=== PATIENT | female | born 1985 | race Caucasian/White ===

== ENCOUNTER 2018-05-25 05:30 | Emergency (ER) | payer OTHER ==
[2018-05-25 05:45] VITALS: TEMP 97.7; O2SAT 100
[2018-05-25 06:05] VITALS: RESP 20
[2018-05-25] MEDS ORDERED: Dexamethasone 4 mg/1 ml IM STA (06:14)
[2018-05-25] MEDS: Albuterol-Ipratrop 3 mg / 0.5 (3 ml) UD IH SCH ×2 (06:20→06:21)
--- NOTE | 2018-05-25 06:25 | C.PDOC ---
History Of Present Illness 33 year old female with PMhx of asthma presents to the ED c/o chest tightness and SOB. Patient reports she went to see her PMD on Sunday and was placed on prednisone and nebulizer treatment. However patient states she still feel SOB, and its recurrent when she goes outside. Patient denies fever, chills, dizziness , nausea, vomit, headache, recent travel, sick contacts. Time Seen by Provider: 05/25/18 06:01 Chief Complaint (Nursing): Shortness Of Breath History Per: Patient History/Exam Limitations: no limitations Onset/Duration Of Symptoms: Days Current Symptoms Are (Timing): Still Present Initiating Event: Upper Respiratory Illness Quality: Tightness Current Respiratory Medications: See Home Med List Recent travel outside of the [place]: No Additional History Per: Patient Past Medical History Reviewed: Historical Data, Nursing Documentation, Vital Signs Vital Signs: Last Vital Signs Temp 97.7 F 05/25/18 05:43 Pulse 99 H 05/25/18 05:43 Resp 20 05/25/18 05:56 BP 159/89 H 05/25/18 05:43 Pulse Ox 100 05/25/18 06:32 - Medical History PMH: Asthma Surgical History: No Surg Hx Family History: States: Unknown Family Hx - Social History Hx Alcohol Use: Yes Hx Substance Use: No Review Of Systems Constitutional: Negative for: Fever, Chills ENT: Negative for: Nose Congestion Cardiovascular: Positive for: Other (chest tightness) Respiratory: Positive for: Shortness of Breath. Negative for: Cough Neurological: Negative for: Weakness, Numbness Physical Exam - Physical Exam Appears: Non-toxic, No Acute Distress Skin: Normal Color, Warm, Dry Head: Atraumatic, Normacephalic Eye(s): bilateral: Normal Inspection, PERRL Throat: Normal, No Erythema, No Exudate Neck: Normal ROM, Supple Chest: Symmetrical Cardiovascular: Rhythm Regular Respiratory: Decreased Breath Sounds (minimally ), No Rales, No Rhonchi, No Wheezing Gastrointestinal/Abdominal: Soft, No Tenderness Extremity: Normal ROM Neurological/Psych: Oriented x3, Normal Speech Gait: Steady ED Course And Treatment O2 Sat by Pulse Oximetry: 100 (ON RA) Pulse Ox Interpretation: Normal Progress Note: Plan: - Decadron 10 mg IM. - Nebulizer treatment X 2. On reassessment, patient is resting comfortably with no wheezing, chest pain, or retractions. Oxygen saturation and breath sounds have improved. Patient is alert and oriented x 3. Patient was advised to follow up with physician/clinic in 1-2 days and return to ED if symptoms worsen or persist. Reevaluation Time: 06:44 Reassessment Condition: Improved Disposition Counseled Patient/Family Regarding: Diagnosis, Need For Followup, Rx Given - Disposition Referrals: [facility] [Outside] Disposition: HOME/ ROUTINE Disposition Time: 06:35 Condition: STABLE Additional Instructions: Continue neb treatments as needed Follow up with PMD Return to ER if worse Prescriptions: Albuterol HFA [Ventolin HFA 90 mcg/actuation (8 g)] 2 puff IH [id number] #1 inhaler Instructions: Asthma, Adult (DC) Forms: [employer] (Norwegian) - Clinical Impression Clinical Impression: Asthma exacerbation - PA / [employer]OYMENT [employer] / Resident Statement MD/DO has reviewed & agrees with the documentation as recorded. - Scribe Statement The provider has reviewed the documentation as recorded by the Scribe Vitaliy Moon All medical record entries made by the Scribe were at my direction and personally dictated by me. I have reviewed the chart and agree that the record accurately reflects my personal performance of the history, physical exam, medical decision making, and the department course for this patient. I have also personally directed, reviewed, and agree with the discharge instructions and disposition.
[2018-05-25 06:55] VITALS: BP 118/79; PULSE 67
== END 2018-05-25 06:56 | disposition home or self-care (01) ==
LOC: C.ER 05:30
DX: J45.901 Unspecified asthma with (acute) exacerbation (principal)
CPT/HCPCS: 94640; 96372; 99284; J1100